=== PATIENT | female | born 1960 | race Caucasian/White ===

== ENCOUNTER → 2017-06-15 | Outpatient (CLI) | payer OTHER ==
[~2017-06-15] MED LIST: FIBER GUMMIES1 EACH PO; Multivitamin1 EAC1 PO; PROBIOTIC1 EAC1 PO
== END ==
LOC: LAB 13:48
DX: R10.13 Epigastric pain (principal)
CPT/HCPCS: 87338

== ENCOUNTER 2017-10-03 08:50 | Day surgery (SDC) | payer OTHER ==
[~2017-10-03] VITALS: Ht 165.1 cm; Wt 78.5 kg
== END 2017-10-03 22:46 | disposition home or self-care (01) ==
LOC: ORSCMMR 08:50 → ORD 09:45 → ORSCMMR 09:45
PROVIDERS: Internal Medicine Gastroenterology
PROC: 0DBE8ZX Excision of Large Intestine, Via Natural or Artificial Opening Endoscopic, Diagnostic (ICD-10-PCS; principal; 2017-10-03 09:45)
PROC: 0DB68ZX Excision of Stomach, Via Natural or Artificial Opening Endoscopic, Diagnostic (ICD-10-PCS; principal; 2017-10-03 09:45)
PROC: 0DB58ZX Excision of Esophagus, Via Natural or Artificial Opening Endoscopic, Diagnostic (ICD-10-PCS; principal; 2017-10-03 09:45)
PROC: 0DB88ZX Excision of Small Intestine, Via Natural or Artificial Opening Endoscopic, Diagnostic (ICD-10-PCS; principal; 2017-10-03 09:45)
PROC: 0DBN8ZX Excision of Sigmoid Colon, Via Natural or Artificial Opening Endoscopic, Diagnostic (ICD-10-PCS; principal; 2017-10-03 09:45)
DX: R10.13 Epigastric pain (principal); K21.9 Gastro-esophageal reflux disease without esophagitis; K29.70 Gastritis, unspecified, without bleeding; R10.33 Periumbilical pain; K63.5 Polyp of colon; K57.30 Diverticulosis of large intestine without perforation or abscess without bleeding
CPT/HCPCS: 88305; 88341; 88342; J7120

== ENCOUNTER → 2022-12-01 | Outpatient (CLI) | payer OTHER | END | disposition home or self-care (01) | LOC: LAB 11:21 → LAB SHORT 11:21 | DX: N39.0 Urinary tract infection, site not specified (principal) | CPT/HCPCS: 87077; 87086; 87186 ==

== ENCOUNTER → 2023-03-29 | Outpatient (CLI) | payer OTHER ==
[2023-03-29 17:21] LABS: BASOPHILS ABSOLUTE AUTO 0.01 K/mm3 (0.00-0.23); BASOPHILS PERCENT AUTO 0 % (0-2); EOSINOPHILS ABSOLUTE AUTO 0.01 K/mm3 (0.00-0.68); EOSINOPHILS PERCENT AUTO 0 % (0-6); Hematocrit 43.7 % (33.0-51.0); Hemoglobin 15.2 g/dL (11.5-16.0); IMMATURE GRAN ABSOLUTE AUTO 0.07 K/mm3 (0.00-0.10); IMMATURE GRAN PERCENT AUTO 1 % (0-1); LYMPHOCYTES ABSOLUTE AUTO 1.18 K/mm3 (0.84-5.20); LYMPHOCYTES PERCENT AUTO 8 % (21-46); MONOCYTES ABSOLUTE AUTO 0.82 K/mm3 (0.16-1.47); MONOCYTES PERCENT AUTO 6 % (4-13); Mean Corpuscular HGB Conc 34.8 g/dL (31.5-36.5); Mean Corpuscular Volume 89 fL (80-100); Mean Platelet Volume 9.9 fL (9.1-12.4); NEUTROPHILS PERCENT AUTO 86 % (41-73); Platelet Count 277 K/mm3 (150-400); RDW Coefficient Variation 13.8 % (11.7-14.2); RDW Standard Deviation 44.8 fL (35.1-46.3); White Blood Cell Count 14.89 K/mm3 (4.00-11.30)
[2023-03-29 17:32] LABS: Albumin, Blood 3.4 g/dL (3.4-5.0); Albumin/Globulin Ratio 0.7 (0.8-1.8); Bilirubin, Total 0.9 mg/dL (0.1-1.0); Calcium, Blood 9.7 mg/dL (8.5-10.1); Creatinine, Blood 0.91 mg/dL (0.40-1.00); Globulin, Blood 4.9 g/dL (2.2-4.0); Potassium, Blood 3.5 mmol/L (3.5-5.5); Total Protein, Blood 8.3 g/dL (6.4-8.2)
== END | disposition home or self-care (01) ==
LOC: LAB 17:18 → LAB SHORT 17:18
PROVIDERS: Emergency Medicine
DX: R10.9 Unspecified abdominal pain (principal)
CPT/HCPCS: 80053; 83690; 85025

== ENCOUNTER 2025-01-27 12:01 | Day surgery (SDC) | payer MEDICARE ==
[~2025-01-27] VITALS: Ht 162.6 cm; Wt 76.5 kg
[~2025-01-27 12:01] MED LIST changes: +Balanced Salt Epinephrine Irrigation Solution 500 mL IR SCH; +FentaNYL Citrate 50 MCG/ML 2 ML Injection IV PRN; +HYDROmorphone HCl/Pf 1MG SYR IV PRN; +Labetalol HCL 5 MG/ML 4ML Injection (Single Dose) IV PRN; +Moxifloxacin HCL 0.5 MG/0.1 ML 0.4MLSYR RIGHTEYE SCH; +Ondansetron 4 MG SoluTab MM PRN; +Ondansetron HCl 2 MG / ML 2ML Vial IV PRN; +PHENYLEPHRINE\\TROPICAMIDE\\TETRACAINE OPHTHALMIC DILATING SOLN RIGHTEYE PRN; +Povidone-Iodine 450 DROP/30 ML Solution ONE; +Povidone-Iodine 450 DROP/30 ML Solution RIGHTEYE SCH; +Tetracaine HCl/Pf 0.5% Opth Soln 4 ml ONE
--- NOTE | 2025-01-27 12:52 | NUR ---
01/27/25 1252 JOSÉ MIGUEL WALDEN PT REPORTS ANXIETY IS 6/10 AT THIS TIME. 5MG PO VALIUM GIVEN 1251
--- NOTE | 2025-01-27 13:25 | NUR ---
01/27/25 1325 Shea Miles HR:74 BP:125/59 SPO2:99% ON 10L BLOW BY O2
[2025-01-27 13:41] VITALS: BP 125/52
== END 2025-01-27 14:00 | disposition home or self-care (01) ==
LOC: ORSCSDS 12:01
PROVIDERS: Student in an Organized Health Care Education/Training Program
PROC: 08RJ3JZ Replacement of Right Lens with Synthetic Substitute, Percutaneous Approach (ICD-10-PCS; principal; 2025-01-27 13:30)
DX: H25.813 Combined forms of age-related cataract, bilateral (principal)
CPT/HCPCS: A9270; V2632

== ENCOUNTER 2025-02-03 08:01 | Day surgery (SDC) | payer MEDICARE ==
[~2025-02-03] VITALS: Ht 162.6 cm; Wt 76.1 kg
[~2025-02-03 08:01] MED LIST changes: -FentaNYL Citrate 50 MCG/ML 2 ML Injection IV PRN; -HYDROmorphone HCl/Pf 1MG SYR IV PRN; -Labetalol HCL 5 MG/ML 4ML Injection (Single Dose) IV PRN; +Moxifloxacin HCL 0.5 MG/0.1 ML 0.4MLSYR LEFTEYE SCH; -Moxifloxacin HCL 0.5 MG/0.1 ML 0.4MLSYR RIGHTEYE SCH; -Ondansetron HCl 2 MG / ML 2ML Vial IV PRN; +PHENYLEPHRINE\\TROPICAMIDE\\TETRACAINE OPHTHALMIC DILATING SOLN LEFTEYE PRN; -PHENYLEPHRINE\\TROPICAMIDE\\TETRACAINE OPHTHALMIC DILATING SOLN RIGHTEYE PRN; +Povidone-Iodine 450 DROP/30 ML Solution LEFTEYE SCH; -Povidone-Iodine 450 DROP/30 ML Solution RIGHTEYE SCH
--- NOTE | 2025-02-03 08:39 | NUR ---
02/03/25 0839 Shea Avelar PT STATES ANXIETY LEVEL IS 4/10 IN PREOP CALL LIGHT IN HAND PT IS ON CONTINUOUS PULSE OX MONITORING
--- NOTE | 2025-02-03 09:13 | NUR ---
02/03/25 0913 Shea Miles HR:78 BP:124/81 SPO2:100% ON 10L BLOW BY O2
[2025-02-03 09:30] VITALS: BP 126/72
--- NOTE | 2025-02-03 09:30 | NUR ---
02/03/[address] AT BEDSIDE
== END 2025-02-03 09:45 | disposition home or self-care (01) ==
LOC: ORSCSDS 08:01
PROVIDERS: Student in an Organized Health Care Education/Training Program
PROC: 08RK3JZ Replacement of Left Lens with Synthetic Substitute, Percutaneous Approach (ICD-10-PCS; principal; 2025-02-03 09:30)
DX: H25.812 Combined forms of age-related cataract, left eye (principal); H52.202 Unspecified astigmatism, left eye; Z96.1 Presence of intraocular lens
CPT/HCPCS: A9270; V2632